=== PATIENT | female | born 1980 | race Caucasian/White ===

== ENCOUNTER 2024-11-22 10:50 | Outpatient (OUT) | payer BC, SELFPAY ==
--- NOTE | 2024-11-22 | XR_ITS ---
The [address] [address] Patient Name: RADHA ULRICH MRN: [id number] date: 1980 Sex: F Assigned Patient Location: [facility] Current Patient Location: Accession/Order Number: [id number] Exam Date: 11/22/2024 11:00 Report Date: 11/26/2024 15:39 At the request of: LUIS MCCORMICK Procedure: XR pelvis 1-2V PROCEDURE: XR pelvis 1-2V HISTORY: M54.17 Radiculopathy, lumbosacral region COMPARISON: None. FINDINGS: BONES:No fracture, acute abnormality, or significant arthropathy. SOFT TISSUES:No visible soft tissue swelling. EFFUSION:None visible. OTHER: L5 partial sacralization (developmental variant). Disc space narrowing. XR/XR pelvis 1-2V IMPRESSION: 1. No acute abnormality or significant degenerative change of the pelvis. 2. 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 Electronically authenticated by: JOANNE VELASCO Date: 11/26/2024 15:39
--- NOTE | 2024-11-22 | XR_ITS ---
The [address] [address] Patient Name: RADHA ULRICH MRN: [id number] date: 1980 Sex: F Assigned Patient Location: [facility] Current Patient Location: [facility] Accession/Order Number: [id number] Exam Date: 11/22/2024 11:00 Report Date: 11/26/2024 15:41 At the request of: LUIS MCCORMICK Procedure: XR lumbar spine min 4V EXAMINATION: XR lumbar spine min 4V HISTORY: M54.17 Radiculopathy, lumbosacral region COMPARISON: No relevant comparison available. FINDINGS: BONES: Partial sacralization of L5 (normal variant). Mild degenerative facet arthropathy L5-S1. DISC SPACES: Moderate marked narrowing L5-S1. PARASPINOUS: Negative. No paraspinous abnormality is seen. OTHER: Negative. XR/XR lumbar spine min 4V IMPRESSION: 1. Moderate-marked narrowing of the L5-S1 disc space; degenerative changes versus developmental since there is sacralization of L5 (normal variant). Consider MRI for further evaluation. Electronically authenticated by: JOANNE VELASCO Date: 11/26/2024 15:41
== END 2024-11-22 10:51 | disposition home or self-care (01) ==
LOC: RAD 10:51
DX: M54.17 Radiculopathy, lumbosacral region (principal)
CPT/HCPCS: 72110; 72170

== ENCOUNTER 2024-12-25 15:09 | Outpatient (REF) | payer BC, SELFPAY ==
--- OUTSIDE RECORDS SUMMARY | 2024-12-25 15:32 | XMS_ITS | CCD ---
Author Organization [facility] Care Team Providers Care Wheel Press Clerk Name Role Phone ANTON CRUZ Admitting Unavailable ANTON CRUZ Attending Unavailable ANTON CRUZ Consulting Unavailable Kuns, Patricio Unavailable Kuns, DO Patricio Primary Care Provider [phone] Kuns, DO Patricio Attending Provider Kuns, DO Patricio Primary Care Provider [phone] MARTHA Barba Attending Provider [phone] Kuns, DO Patricio Attending Provider Kuns, DO Patricio Attending Provider [phone] Kuns, DO Patricio Referring Provider Kuns, DO Patricio Primary Care Provider Kuns, Patricio Primary Care Unavailable Kuns, Patricio Admitting Unavailable Kuns, Patricio Attending Unavailable Kuns, Patricio Attending Unavailable Kuns, Patricio Primary Care Unavailable Kuns, Patricio Admitting Unavailable Kuns, Patricio Referring Unavailable Kuns, Patricio Primary Care Unavailable Leilani Barba Attending Unavailable Leilani Barba Admitting Unavailable Medications Current Medications Medication Drug Class(es) Dates Sig (Normalized) Sig (Original) ciprofloxacin 500 mg oral tablet (1 source) Quinolone Antimicrobial Start: 08-09-2021 take 1 tablet by mouth every twelve hours Ciprofloxacin HCl 500 MG 1 tablet Orally every 12 hrs for 10 day(s) Jul, Active meloxicam 15 mg oral tablet (8 sources) Nonsteroidal Anti-inflammatory Drug Start: 04-03-2024 End: 07-08-2024 take 1 tablet by mouth once daily as needed Meloxicam 15 mg tablet Active 15 MG PO Daily as needed July 08, 2024 7:30am 8 hr methylphenidate hydrochloride 20 mg extended release oral tablet (20 sources) Central Nervous System Stimulant Start: 07-08-2024 End: 11-12-2024 take 1 tablet by mouth once daily Methylphenidate Hcl 20 mg tablet extended release Active 20 MG PO Daily November 12, 2024 Start: 01-07-2024 End: 07-08-2024 take 1 tablet by mouth once daily Methylphenidate Hcl 20 mg tablet extended release Discontinued 20 MG PO Daily May 12, 2024 June 12, 2024 10:47am Start: 08-23-2023 take 1 tablet by leonardo th every twenty-four hours Methylphenidate HCl ER 20 MG 1 tablet Orally Once a day for 30 days Aug, Active Start: 07-26-2023 take 1 tablet by leonardo th every twenty-four hours Methylphenidate HCl ER 20 MG 1 tablet Orally Once a day for 30 days Jul, Active Start: 06-27-2023 take 1 tablet by leonardo th every twenty-four hours Methylphenidate HCl ER 20 MG 1 tablet Orally Once a day for 30 days Jun, Active Start: 05-28-2023 take 1 tablet by leonardo th every twenty-four hours Methylphenidate HCl ER 20 MG 1 tablet Orally Once a day for 30 days May, Active Start: 04-25-2023 take 1 tablet by leonardo th every twenty-four hours Methylphenidate HCl ER 20 MG 1 tablet Orally Once a day for 30 days Apr, Active Start: 03-21-2023 take 1 tablet by leonardo th every twenty-four hours Methylphenidate HCl ER 20 MG 1 tablet Orally Once a day for 30 days February, Active Start: 12-01-2022 take 1 tablet by leonardo th every twenty-four hours Methylphenidate HCl ER 20 MG 1 tablet Orally Once a day for 30 days Nov, Active Start: 08-03-2022 take 1 tablet by leonardo th every twenty-four hours Methylphenidate HCl ER 20 MG 1 tablet Orally Once a day for 30 days Jul, Active Start: 07-03-2022 take 1 tablet by leonardo th every twenty-four hours Methylphenidate HCl ER 20 MG 1 tablet Orally Once a day for 30 days Jun, Active Start: 05-01-2022 take 1 tablet by leonardo th every twenty-four hours Methylphenidate HCl ER 20 MG 1 tablet Orally Once a day Apr, Active Start: 03-30-2022 take 1 tablet by leonardo th every twenty-four hours Methylphenidate HCl ER 20 MG 1 tablet Orally Once a day Mar, Active Start: 01-30-2022 take 1 tablet by leonardo th every twenty-four hours Methylphenidate HCl ER 20 MG 1 tablet Orally Once a day Jan, Active Start: 11-30-2021 take 1 tablet by leonardo th every twenty-four hours Methylphenidate HCl ER 20 MG 1 tablet Orally Once a day Nov, Active Start: 10-26-2021 take 1 tablet by leonardo th every twenty-four hours Methylphenidate HCl ER 20 MG 1 tablet Orally Once a day Oct, Active Start: 09-19-2021 take 1 tablet by leonardo th every twenty-four hours Methylphenidate HCl ER 20 MG 1 tablet Orally Once a day Aug, Active Start: 08-19-2021 take 1 tablet by leonardo th every twenty-four hours Methylphenidate HCl ER 20 MG 1 tablet Orally Once a day Jul, Active Multiple Vitamin - (3 sources) take 1 tablet by mouth once daily Multiple Vitamin - 1 tablet Orally Once a day Active Multivitamin (Multiple Vitamins) tablet (7 sources) Start: 01-07-2024 take 1 tablet by mouth once daily Multivitamin (Multiple Vitamins) tablet Active 1 TAB PO Daily January 06, 2024 11:00pm Start: 01-07-2024 take 1 tablet by leonardo th once daily Multivitamin (Multiple Vitamins) tablet Active 1 TAB PO Daily January 07, 2024 12:00am semaglutide (4 sources) Start: 07-08-2024 inject 1.2 mg by subcutaneous injection every week semaglutide Active 1.2 MG SUBCUT Once a week July 07, 2024 11:00pm Start: 07-08-2024 End: 07-08-2024 inject 0.6 mg by subcutaneous injection every week semaglutide Discontinued 0.6 MG SUBCUT Once a week July 07, 2024 11:00pm July 08, 2024 7:55am Start: 07-08-2024 inject 1.2 mg by sub cutaneous injection every week semaglutide Active 1.2 MG SUBCUT Once a week July 08, 2024 12:00am Start: 07-08-2024 End: 07-08-2024 inject 0.6 mg by subcutaneous injection every week semaglutide Discontinued 0.6 MG SUBCUT Once a week July 08, 2024 12:00am July 08, 2024 8:55am SUMAtriptan 100 mg oral tablet (17 sources) Serotonin-1b and Serotonin-1d Receptor Agonist Start: 01-07-2024 End: 01-08-2024 take 1 tablet by mouth once as needed for headache Sumatriptan Succinate (Imitrex) 100 mg tablet Active 100 MG PO Once as needed for migraine headache January 08, 2024 12:10pm Start: 07-26-2023 take 1 tablet by leonardo th once daily as needed Imitrex 100 MG 1 tablet at onset of headache Orally Once a day as needed Jul, Active Completed/Discontinued Medications Medication Drug Class(es) Dates Sig (Normalized) Sig (Original) B-12 - up to 1000 mcg (20 sources) Start: 11-06-2013 B-12 - up to 1000 mcg Oct, 1 mL Start: 08-25-2013 B-12 - up to 1 000 mcg Aug, 1 mL Start: 07-28-2013 B-12 - up to 1 000 mcg Jul, 1 mL Start: 09-23-2012 B-12 - up to 1 000 mcg Sep, Ketorolac (20 sources) Nonsteroidal Anti-inflammatory Drug, Cyclooxygenase Inhibitor Start: 10-12-2016 Toradol per 15 mg Sep, 60 mg Semaglutide (7 sources) Start: 04-01-2024 End: 07-08-2024 Semaglutide (Ozempic) 0.25 mg or 0.5 mg (2 mg/3 mL) pen injector Discontinued 0.25 MG SUBCUT every week March 31, 2024 11:00pm July 08, 2024 7:31am for 4 weeks Start: 04-01-2024 End: 07-08-2024 Semaglutide (Ozempic) 0.25 m g or 0.5 mg (2 mg/3 mL) pen injector Discontinued 0.25 MG SUBCUT every week April 01, 2024 12:00am July 08, 2024 8:31am for 4 weeks Start: 04-01-2024 Semaglutide (O zempic) 0.25 mg or 0.5 mg (2 mg/3 mL) pen injector Active 0.25 MG SUBCUT every week April 01, 2024 12:00am for 4 weeks Toradol 30 mg/ml (3 sources) Start: 07-26-2023 Toradol 30 mg/ ml Jul, 60 mg Problems Active Problems Problem Classification Problem Date Documented Date Episodic/Chronic Adjustment disorders (18 sources) Grief finding; Translations: [Adjustment disorder, unspecified] Chronic Administrative/social admission (1 source) Other specified counseling Episodic Anxiety disorders (20 sources) Anxiety; Translations: [Anxiety disorder, unspecified] 01-08-2024 Chronic Attention-deficit, conduct, and disruptive behavior disorders (20 sources) Attention deficit hyperactivity disorder, predominantly inattentive type; Translations: [Attention-deficit hyperactivity disorder, predominantly inattentive type] 01-08-2024 Chronic Attention-deficit, conduct, and disruptive behavior disorders (20 sources) Attention-deficit hyperactivity disorder, predominantly inattentive type; Translations: [ADD (attention deficit disorder) F90.0] Onset: 08-19-2021 Resolved: 07-11-2022 Chronic Disorders of lipid metabolism (20 sources) Hyperlipidemia; Translations: [Hyperlipidemia, unspecified] Onset: 09-19-2021 Resolved: 09-19-2021 Chronic Disorders usually diagnosed in infancy, childhood, or adolescence (3 sources) Other specified behavioral and emotional disorders with onset usually occurring in childhood and adolescence; Translations: [Attention deficit disorder without mention of hyperactivity] 01-08-2024 Chronic Headache; including migraine (11 sources) Refractory migraine; Translations: [Migraine, unspecified, intractable, with status migrainosus] Chronic Immunizations and screening for infectious disease (2 sources) Encounter for screening for human papillomavirus (HPV); Translations: [Contact with or exposure to other viral diseases] Onset: 03-24-2020 12-01-2024 Episodic Other connective tissue disease (7 sources) Foot pain; Translations: [Pain in left foot] 04-01-2024 Episodic Other nervous system disorders (2 sources) Superficial peroneal neuropathy; 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0-33.9, adult Chronic Other nutritional; endocrine; and metabolic disorders (8 sources) Obesity, unspecified; Translations: [Obesity, unspecified] 01-08-2024 Chronic Other nutritional; endocrine; and metabolic disorders (2 sources) Obesity; Translations: [Obesity, unspecified] 07-08-2024 Chronic Other nutritional; endocrine; and metabolic disorders (3 sources) Overweight in adulthood with body mass index of 25 or more but less than 30; Translations: [Body mass index (BMI) 29.0-29.9, adult] 07-08-2024 Episodic Other nutritional; endocrine; and metabolic disorders (1 source) Body mass index (BMI) 29.0-29.9, adult; Translations: [Body Mass Index 29.0-29.9, adult] 07-08-2024 Episodic Other nutritional; endocrine; and metabolic disorders (1 source) Body mass index (BMI) 27.0-27.9, adult; Translations: [Body Mass Index 27.0-27.9, adult] 10-06-2024 Episodic Other screening for suspected conditions (not mental disorders or infectious disease) (20 sources) Encounter for screening for malignant neoplasm of cervix; Translations: [Inverted T wave] Onset: 03-23-2020 Episodic Sprains and strains (20 sources) Sprain of ankle; Translations: [Sprain of unspecified ligament of left ankle, initial encounter] 04-01-2024 Episodic Viral infection (2 sources) Viral disease; Translations: [Viral infection, unspecified] 12-01-2024 Episodic Past or Other Problems Problem Classification Problem Date Documented Da te Episodic/Chronic Genitourinary symptoms and ill-defined conditions (4 sources) Dysuria; Translations: [Dysuria] Episodic Other and unspecified benign neoplasm (4 sources) Neoplasm and/or hamartoma; Translations: [Melanocytic nevi, unspecified] Episodic Other connective tissue disease (1 source) Pain in left foot; Translations: [Pain in left foot] Onset: 04-01-2024 Episodic Other non-traumatic joint disorders (1 source) Pain in left ankle and joints of left foot; Translations: [Pain in left ankle and joints of left foot] Onset: 04-01-2024 Episodic Unclassified (1 source) History of COVID-19 Z86.16; Translations: [History of COVID-19 Z86.16] Onset: 08-19-2021 Resolved: 08-19-2021 Unclassified (1 source) Encntr screen for dis of the bld/bld-form org/immun mechnsm V78.8 Unclassified (1 source) Encounter for school examination V70.5 Results Test Name Value Interpretation Reference Range Facility MM screening mammo BI w/CADo n 04-21-2024 MM screening mammo BI w/CAD [facility] [place] [address] [place] [address] Mammography Report Signed Patient: Jose Gonsales MR#: [id number] : 1980 Acct:[id number] Age/Sex: 43 / F ADM Date: 04/21/24 Loc: ME Room: Type: [facility] Attending Dr: Patricio Freed DO Copies to: Patricio Freed DO Ordering Provider: Patricio Freed DO Date of Service: 04/21/24 MM/MM screening mammo BI w/CAD: Z12.39 - Encounter for other screening for malignant neop... BILATERAL Screening Full Field digital mammogram with 3-D imaging. Full field digital CC and MLO imaging performed. CAD utilized. COMPARISON: 04/02/2023 HISTORY: Annual screening BREAST COMPOSITION: Scattered fibroglandular densities of the breast parenchyma identified BREAST CALCIFICATIONS: Benign calcifications present. VASCULAR CALCIFICATIONS: None ARCHITECTURAL DISTORTION: None BREAST NODULE: None AXILLARY LYMPH NODES: Normal POSTSURGICAL CHANGES: None MM/MM screening mammo BI w/CAD IMPRESSION: No mammographic evidence of malignancy. Routine follow-up recommended in one year. RESULT CODE: 2 Benign Findings(s) DENSITY CODE: 2 (approximately 25-50% glandular) FOLLOW UP: 1YR THE FALSE-NEGATIVE RATE OF MAMMOGRAPHY IS APPROXIMATELY 10%. IMAGING OF A PALPABLE ABNORMALITY MUST BE BASED ON CLINICAL GROUNDS. PATIENT WAS ENTERED INTO A REMINDER SYSTEM WITH A TARGET DUE DATE FOR THE NEXT MAMMOGRAM. Impression dictated by: Issac Oliveros M.D.04/21/2024 9:34 AM Dictation Location: [facility] Transcribed By: PWS 04/21/24933 Dictated By: Issac Oliveros DO 04/21/24932 Signed By: 04/21/24933 Normal [facility] Alanine aminotransferase [En zymatic activity/volume] in Serum or PlasmaOrdered By: Patricio Freed on 04-15-2024 ALT [Catalytic activity/Vol] 24 U/L Normal 7-52 [facility] Comment on above: Performed By: #### C MP, CBC, LIPID, TSH3 #### [facility] [address] [place] [address] [place] Albumin [Mass/volume] in Ser um or Plasma by Bromocresol green (BCG) dye binding methoOrdered By: Patricio Freed on 04-15-2024 Albumin BCG dye [Mass/Vol] 4.0 g/dL 3.5-5.7 [facility] Alkaline phosphatase [Enzyma tic activity/volume] in Serum or PlasmaOrdered By: Patricio Freed on 04-15-2024 ALP [Catalytic activity/Vol] 59 U/L Normal 34-104 [facility] Comment on above: Performed By: #### C MP, CBC, LIPID, TSH3 #### [facility] [address] [place] [id number] [facility] Aspartate aminotransferase [ Enzymatic activity/volume] in Serum or PlasmaOrdered By: Patricio Freed on 04-15-2024 AST [Catalytic activity/Vol] 21 U/L Normal 13-39 [facility] Comment on above: Performed By: #### C MP, CBC, LIPID, TSH3 #### [facility] [address] [place] [id number] [place] Automated basophil %Ordered By: Patricio Freed on 04-15-2024 Basophils/100 WBC (Bld) 0.6 % Normal . [facility] Comment on above: Performed By: #### C MP, CBC, LIPID, TSH3 #### [address] Automated basophil countOrde red By: Patriciolinda Freed on 04-15-2024 Basophils (Bld) [#/Vol] 0.0 10*3/uL Normal 0.0-0.2 [facility] Comment on above: Result Comment: PERF ORMED BY: [place] [address] PATHOLOGIST MERCHANDISE ADJUSTMENT CLERK DAVID FRENCH M.D. Performed By: #### C MP, CBC, LIPID, TSH3 #### [address] Automated blood monocyte cou ntOrdered By: Patricio Freed on 04-15-2024 Monocytes (Bld) [#/Vol] 0.3 10*3/uL Normal 0.0-0.8 [facility] Comment on above: Performed By: #### C MP, CBC, LIPID, TSH3 #### [address] Automated eosinophil %Ordere d By: Patricio Freed on 04-15-2024 Eosinophils/100 WBC (Bld) 1.2 % Normal . [facility] Comment on above: Performed By: #### C MP, CBC, LIPID, TSH3 #### [address] Automated eosinophil countOr dered By: Patricio Freed on 04-15-2024 Eosinophils (Bld) [#/Vol] 0.0 10*3/uL Normal 0.0-0.45 [facility] Comment on above: Performed By: #### C MP, CBC, LIPID, TSH3 #### [address] Automated monocyte %Ordered By: Patricio Freed on 04-15-2024 Monocytes/100 WBC (Bld) 9.0 % Normal . [facility] Comment on above: Performed By: #### C MP, CBC, LIPID, TSH3 #### [address] Automated neutrophil %Ordere d By: Patricio Freed on 04-15-2024 Neutrophils/100 WBC (Bld) 55.0 % Normal . [facility] Comment on above: Performed By: #### C MP, CBC, LIPID, TSH3 #### [address] Bilirubin.total [Mass/volume ] in Serum or PlasmaOrdered By: Patricio Freed on 04-15-2024 Bilirubin [Mass/Vol] 0.7 mg/dL Normal 0.3-1.0 [facility] Comment on above: Performed By: #### C MP, CBC, LIPID, TSH3 #### [address] Calcium [Mass/volume] in Ser um or PlasmaOrdered By: Patricio Freed on 04-15-2024 Calcium [Mass/Vol] 8.8 mg/dL Normal 8.6-10.3 [facility] Comment on above: Performed By: #### C MP, CBC, LIPID, TSH3 #### [address] Carbon dioxide, total [Moles /volume] in Serum or PlasmaOrdered By: Patricio Freed on 04-15-2024 CO2 [Moles/Vol] 28.8 mmol/L Normal 21.0-31.0 [facility] Comment on above: Performed By: #### C MP, CBC, LIPID, TSH3 #### [place] [address] [place] Chloride [Moles/volume] in S fausto or PlasmaOrdered By: Patricio Freed on 04-15-2024 Chloride [Moles/Vol] 107 mmol/L Normal 98-107 [facility] Comment on above: Performed By: #### C MP, CBC, LIPID, TSH3 #### [address] Cholesterol [Mass/volume] in Serum or PlasmaOrdered By: Patricio Freed on 04-15-2024 Cholesterol [Mass/Vol] 133 mg/dL Low 140-200 [facility] Comment on above: Chol less than 200 m g/dl low riskChol 201-239 mg/dl borderline riskChol 240 mg/dl and greater high risk Result Comment: Chol less than 200 mg/dl low risk Chol 201-239 mg/dl borderline risk Chol 240 mg/dl and greater high risk Performed By: #### C MP, CBC, LIPID, TSH3 #### [facility] [address] Cholesterol in LDL Calc [Mas s/Vol]Ordered By: Patricio Freed on 04-15-2024 Cholesterol in LDL [Mass/Vol] 75 mg/dL 0-100 [facility] Comment on above: LDL ATP III CLASSIFI CATIONLDL less than 100 mg/dL OptimalLDL 100-129 mg/dL Near or above optimalLDL 130-159 mg/dL Borderline highLDL 160-189 mg/dL HighLDL greater than 189 mg/dL Very high Cholesterol in VLDL Calc [Ma ss/Vol]Ordered By: Patricio Freed on 04-15-2024 Cholesterol in VLDL [Mass/Vol] 12 mg/dL [facility] Complete Blood Count Auto Di ffon 04-15-2024 Mean Corpuscular HGB Conc 33.7 g/dL Normal 32.0-35.0 [facility] Comment on above: Performed By: #### C MP, CBC, LIPID, TSH3 #### [facility] [address] NRBC% 0.1 /100{WBC} Normal 0-0.5 [facility] Comment on above: Performed By: #### C MP, CBC, LIPID, TSH3 #### [facility] [address] Comprehensive Metabolic Pane main 04-15-2024 Albumin [Mass/Vol] 4.0 g/dL Normal 3.5-5.7 [facility] Comment on above: Performed By: #### C MP, CBC, LIPID, TSH3 #### [address] GFR/1.73 sq M.predicted MDRD (S/P/Bld) [Vol rate/Area] mL/min/{1.73_m2} Normal [facility] Comment on above: Performed By: #### C MP, CBC, LIPID, TSH3 #### [address] Creatinine [Mass/volume] in Serum or PlasmaOrdered By: Patricio Freed on 04-15-2024 Creatinine [Mass/Vol] 0.68 mg/dL Normal 0.60-1.20 [facility] Comment on above: Performed By: #### C MP, CBC, LIPID, TSH3 #### [address] Erythrocyte distribution wid th [Ratio] by Automated countOrdered By: Patricio Freed on 04-15-2024 Erythrocyte distribution width (RBC) [Ratio] 14.7 % Normal 11.9-15.3 [facility] Comment on above: Performed By: #### C MP, CBC, LIPID, TSH3 #### [address] Erythrocytes [#/volume] in B lood by Automated countOrdered By: Patricio Freed on 04-15-2024 RBC (Bld) [#/Vol] 4.26 10*6/uL Normal 3.60-5.00 [facility] Comment on above: Performed By: #### C MP, CBC, LIPID, TSH3 #### [address] [facility] ECG *PCP OFFICE ONLY*on 04-15-2024 [facility] ECG *PCP OFFICE ONLY* [facility] [place] [address] [place] [address] Electrocardiograph Report Signed Patient: Jose Gonsales MR#: [id number] : 1980 Acct:[id number] Age/Sex: 43 / F ADM Date: 04/15/24 Loc: EKGCAST Room: Type: [facility] Attending Dr: Patricio Freed DO Ordering Provider: Patricio Freed DO Date of Service: 04/15/24 ECG/FPG ECG *PCP OFFICE ONLY*: Z00.00 - Encounter for general adult medical examination ... Copies to: Test Reason : val Blood Pressure : / mmHG Vent. Rate : 057 BPM Atrial Rate : 057 BPM P-R Int : 172 ms QRS Dur : 076 ms QT Int : 448 ms P-R-T Axes : 042 066 049 degrees QTc Int : 436 ms Sinus bradycardia Otherwise normal ECG No previous ECGs available Confirmed by Maxx Hickman ([id number]) on 04/21/2024 4:00:34 PM Referred By: Electronically Signed By:Maxx Hickman Transcribed By: MUS Signed By Maxx Hickman MD 04/21/24 1600 Normal [facility] Glucose [Mass/volume] in Ser um or PlasmaOrdered By: Patricio Freed on 04-15-2024 Glucose [Mass/Vol] 74 mg/dL Normal 70-100 [facility] Comment on above: ADA recommended refe rence rangeRandom Glucose Reference Range is dependent on time and content of last meal. Glucose of more than 200 mg/dL in a nonstressed, ambulatory subject supports the diagnosis of Diabetes Mellitus. Result Comment: [place] om Glucose Reference Range is dependent on time and content of last meal. Glucose of more than 200 mg/dL in a nonstressed, ambulatory subject supports the diagnosis of Diabetes Mellitus. ADA recommended reference range Performed By: #### C MP, CBC, LIPID, TSH3 #### [facility] [address] Hematocrit [Volume Fraction] of Blood by Automated countOrdered By: Patricio Freed on 04-15-2024 Hematocrit (Bld) [Volume fraction] 35.9 % Normal 34.0-46.4 [facility] Comment on above: Performed By: #### C MP, CBC, LIPID, TSH3 #### [facility] [address] Hemoglobin [Mass/volume] in BloodOrdered By: Patricio Freed on 04-15-2024 Hemoglobin (Bld) [Mass/Vol] 12.1 g/dL Normal 11.8-15.4 [facility] Comment on above: Performed By: #### C MP, CBC, LIPID, TSH3 #### [facility] [address] Laboratory - Chemistry and C hemistry - challengeon 04-15-2024 Bilirubin Ql (U) Negative [facility] Glucose (U) [Mass/Vol] [facility] Ketones Ql (U) trace [facility] pH (U) 6.5 [pH] [facility] Specific gravity (U) [Rel density] 1.030 [facility] Urobilinogen (U) [Mass/Vol] 0.2 mg/dL [facility] Laboratory - Urinalysison Leukocyte esterase Test strip Ql (U) Negative [facility] Nitrite Ql (U) Negative [facility] Protein Ql (U) Negative [facility] Leukocytes [#/volume] correc radha for nucleated erythrocytes in Blood by Automated counOrdered By: Patricio Freed on 04-15-2024 WBC corrected for nucl RBC Auto (Bld) [#/Vol] 3.8 10*3/uL 3.8-11.6 [facility] Leukocytes [#/volume] in Blo od by Automated countOrdered By: Patricio Freed on 04-15-2024 WBC (Bld) [#/Vol] 3.8 10*3/uL Normal 3.8-11.6 [facility] Comment on above: Performed By: #### C MP, CBC, LIPID, TSH3 #### [facility] [address] Lipid Panelon 04-15-2024 LDL Cholesterol,Calculated 75 mg/dL Normal 0-100 [facility] Comment on above: Result Comment: LDL ATP III CLASSIFICATION LDL less than 100 mg/dL Optimal LDL 100-129 mg/dL Near or above optimal LDL 130-159 mg/dL Borderline high LDL 160-189 mg/dL High LDL greater than 189 mg/dL Very high Performed By: #### C MP, CBC, LIPID, TSH3 #### [address] Triglyceride w/Reflex 61 mg/dL Normal 0-149 [facility] Comment on above: Result Comment: TRIG ATP III CLASSIFICATION TRIG less than 150 mg/dL Normal TRIG 150-199 mg/dL Borderline high TRIG 200-500 mg/dL High TRIG greater than 500 mg/dL Very high Standard traceable to the Center for Disease Conrtrol and Prevention (CDC) test method. Performed By: #### C MP, CBC, LIPID, TSH3 #### [address] VLDL CHOLESTEROL 12 mg/dL Normal [facility] Comment on above: Performed By: #### C MP, CBC, LIPID, TSH3 #### [address] Lymphocytes [#/volume] in Bl ood by Automated countOrdered By: Patricio Freed on 04-15-2024 Lymphocytes (Bld) [#/Vol] 1.3 10*3/uL Normal 1.00-4.8 [facility] Comment on above: Performed By: #### C MP, CBC, LIPID, TSH3 #### [address] Lymphocytes/100 leukocytes i n Blood by Automated countOrdered By: Patricio Freed on 04-15-2024 Lymphocytes/100 WBC (Bld) 34.2 % Normal . [facility] Comment on above: Performed By: #### C MP, CBC, LIPID, TSH3 #### [address] MCH [Entitic mass] by Automa radha countOrdered By: Patricio Freed on 04-15-2024 MCH (RBC) [Entitic mass] 28.4 pg Normal 24.7-34.3 [facility] Comment on above: Performed By: #### C MP, CBC, LIPID, TSH3 #### [address] MCHC Auto (RBC) [Mass/Vol]Or dered By: Patricio Freed on 04-15-2024 MCHC (RBC) [Mass/Vol] 33.7 g/dL 32.0-35.0 [facility] MCV [Entitic volume] by Auto mated countOrdered By: Patricio Freed on 04-15-2024 MCV (RBC) [Entitic vol] 84.2 fL Normal 80-100 [facility] Comment on above: Performed By: #### C MP, CBC, LIPID, TSH3 #### [address] Neutrophils [#/volume] in Bl ood by Automated countOrdered By: Patricio Freed on 04-15-2024 Neutrophils (Bld) [#/Vol] 2.1 10*3/uL Normal 1.8-7.7 [facility] Comment on above: Performed By: #### C MP, CBC, LIPID, TSH3 #### [address] No Panel InformationOrdered By: Patricio Freed on 04-15-2024 Estimated GFR (CKD-EPI) > 60.0 mL/Min [facility] Creatinine Clearance (Chem N/A [facility] No Panel Informationon 04-15 Urine Occult Blood Negative [facility] Nucleated erythrocytes [Pres ence] in Blood by Automated countOrdered By: Patricio Freed on 04-15-2024 Nucleated RBC Auto Ql (Bld) 0.1 /100{WBC} 0-0.5 [facility] Platelet mean volume [Entiti c volume] in Blood by Automated countOrdered By: Patricio Freed on 04-15-2024 Platelet mean volume (Bld) [Entitic vol] 9.0 fL Normal 6.3-10.7 [facility] Comment on above: Performed By: #### C MP, CBC, LIPID, TSH3 #### [address] Platelets [#/volume] in Bloo d by Automated countOrdered By: Patricio Freed on 04-15-2024 Platelets (Bld) [#/Vol] 234 10*3/uL Normal 150-450 [facility] Comment on above: Performed By: #### C MP, CBC, LIPID, TSH3 #### [address] [place] [address] [place] Potassium [Moles/volume] in Serum or PlasmaOrdered By: Patricio Freed on 04-15-2024 Potassium [Moles/Vol] 4.1 mmol/L Normal 3.5-5.1 [facility] Comment on above: Performed By: #### C MP, CBC, LIPID, TSH3 #### [address] Protein [Mass/volume] in Ser um or PlasmaOrdered By: Patriciolinda Velezs on 04-15-2024 Protein [Mass/Vol] 6.7 g/dL Normal 6.4-8.9 [facility] Comment on above: Performed By: #### C MP, CBC, LIPID, TSH3 #### [address] Serum globulin measurement b y calculation (mass/volume)Ordered By: Patricio Freed on 04-15-2024 Globulin (S) [Mass/Vol] 2.7 g/dL Normal [facility] Comment on above: Performed By: #### C MP, CBC, LIPID, TSH3 #### [address] Serum or plasma albumin/glob ulin mass ratioOrdered By: Patricio Freed on 04-15-2024 Albumin/Globulin [Mass ratio] 1.5 {ratio} Normal [facility] Comment on above: Performed By: #### C MP, CBC, LIPID, TSH3 #### [facility] [address] [place] [address] Serum or plasma anion gap de terminationOrdered By: Patricio Freed on 04-15-2024 Anion gap [Moles/Vol] 8.3 mmol/L Normal 6.0-15.0 [facility] Comment on above: Performed By: #### C MP, CBC, LIPID, TSH3 #### [address] Serum or plasma high density lipoprotein (HDL) cholesterol measurementOrdered By: Patricio Freed on 04-15-2024 Cholesterol in HDL [Mass/Vol] 46 mg/dL Normal 23-92 [facility] Comment on above: HDL CHOL ATP-III CLA SSIFICATION Cardiovascular RiskHDL > or equal to 60 mg/dL LOWHDL < 40 mg/dL HIGH Result Comment: HDL CHOL ATP-III CLASSIFICATION Cardiovascular Risk HDL > or equal to 60 mg/dL LOW HDL < 40 mg/dL HIGH Performed By: #### C MP, CBC, LIPID, TSH3 #### [facility] [address] [place] [address] Serum or plasma total choles terol/high density lipoprotein (HDL) cholesterol mass ratOrdered By: Patricio Freed on 04-15-2024 Cholesterol.total/Lima sterol in HDL [Mass ratio] 2.9 {ratio} Normal <5.0 [facility] Comment on above: Performed By: #### C MP, CBC, LIPID, TSH3 #### [facility] [address] [place] [address] Sodium [Moles/volume] in Ser um or PlasmaOrdered By: Patricio Freed on 04-15-2024 Sodium [Moles/Vol] 140 mmol/L Normal 136-145 [facility] Comment on above: Performed By: #### C MP, CBC, LIPID, TSH3 #### [facility] [address] [place] [address] Thyrotropin [Units/volume] i n Serum or PlasmaOrdered By: Patricio Freed on 04-15-2024 TSH Qn 1.16 m[IU]/L Normal 0.45-5.33 [facility] Comment on above: Result Comment: PERF ORMED BY: [place] [address] PATHOLOGIST MERCHANDISE ADJUSTMENT CLERK DAVID FRENCH M.D. Performed By: #### C MP, CBC, LIPID, TSH3 #### [facility] [address] [place] [address] Triglyceride [Mass/volume] i n Serum or PlasmaOrdered By: Patricio Freed on 04-15-2024 Triglyceride [Mass/Vol] 61 mg/dL 0-149 [facility] Comment on above: TRIG ATP III CLASSIF ICATIONTRIG less than 150 mg/dL NormalTRIG 150-199 mg/dL Borderline highTRIG 200-500 mg/dL High TRIG greater than 500 mg/dL Very highStandard traceable to the Center for Disease Conrtrol and Prevention (CDC) test method. Urea nitrogen [Mass/volume] in Serum or PlasmaOrdered By: Patricio Freed on 04-15-2024 Urea nitrogen [Mass/Vol] 14 mg/dL Normal - [facility] Comment on above: Performed By: #### C MP, CBC, LIPID, TSH3 #### [facility] [address] XR foot LT min 3V*on 024 XR foot LT min 3V* [facility] Main [place] [address] [place] [address] XRay Report Signed Patient: Jose Gonsales MR#: [id number] : 1980 Acct:[id number] Age/Sex: 43 / F ADM Date: 04/01/24 Loc: XDUCLY Room: Type: [facility] Attending Dr: Leilani Barba APRN Copies to: Leilani Barba APRN Ordering Provider: Leilani Barba APRN Date of Service: 04/01/24 XR/XR foot LT min 3V*: M79.672 - Pain in left foot ([id number]) XR/XR ankle LT min 3V*: M25.572 - Pain in left ankle and joints of left foot 3 views left ankle plain film COMPARISON: None HISTORY: Left foot and ankle injury. Pain lateral malleolus and base of the fifth metatarsal ACUTE FINDINGS: None DEGENERATIVE CHANGE: Unremarkable SOFT TISSUE FINDINGS: Unremarkable JOINT EFFUSION: None POSTOP CHANGES: None BONE MINERALIZATION: Adequate XR/XR ankle LT min 3V* IMPRESSION: No acute findings. 3 views left foot Adequate alignment. No acute fracture. Unremarkable soft tissues. IMPRESSION: No acute fracture. Impression dictated by: Issac Oliveros M.D.04/01/2024 9:46 AM Dictation Location: [place] [address] Transcribed By: [facility] 04/01/24 0946 Dictated By: Issac Oliveros DO 04/01/24 0944 Signed By: 04/01/24 0946 Normal [facility] Alanine aminotransferase [En zymatic activity/volume] in Serum or PlasmaOrdered By: Patricio Freed on 03-06-2023 ALT [Catalytic activity/Vol] 17 U/L 7-52 [facility] Albumin [Mass/volume] in Ser um or Plasma by Bromocresol green (BCG) dye binding methoOrdered By: Patricio Freed on 03-06-2023 Albumin BCG dye [Mass/Vol] 3.9 g/dL 3.5-5.7 [facility] Alkaline phosphatase [Enzyma tic activity/volume] in Serum or PlasmaOrdered By: Patricio Freed on 03-06-2023 ALP [Catalytic activity/Vol] 63 U/L 34-104 [facility] Aspartate aminotransferase [ Enzymatic activity/volume] in Serum or PlasmaOrdered By: Patricio Freed on 03-06-2023 AST [Catalytic activity/Vol] 15 U/L 13-39 [facility] Basophils Auto (Bld) [#/Vol] Ordered By: Patricio Freed on 03-06-2023 Basophils (Bld) [#/Vol] 0.0 10*3/uL 0.0-0.2 [facility] Basophils/100 WBC Auto (Bld) Ordered By: Patricio Freed on 03-06-2023 Basophils/100 WBC (Bld) 0.3 % . [facility] Bilirubin.total [Mass/volume ] in Serum or PlasmaOrdered By: Patricio Freed on 03-06-2023 Bilirubin [Mass/Vol] 0.3 mg/dL 0.3-1.0 [facility] Calcium [Mass/volume] in Ser um or PlasmaOrdered By: Patricio Freed on 03-06-2023 Calcium [Mass/Vol] 8.6 mg/dL 8.6-10.3 [facility] Carbon dioxide, total [Moles /volume] in Serum or PlasmaOrdered By: Patricio rFeed on 03-06-2023 CO2 [Moles/Vol] 25.3 mmol/L 21.0-31.0 [facility] Chloride [Moles/volume] in S fausto or PlasmaOrdered By: Patricio Freed on 03-06-2023 Chloride [Moles/Vol] 110 mmol/L 98-107 [facility] Cholesterol [Mass/volume] in Serum or PlasmaOrdered By: Patricio Freed on 03-06-2023 Cholesterol [Mass/Vol] 118 mg/dL 140-200 [facility] Comment on above: Chol less than 200 m g/dl low riskChol 201-239 mg/dl borderline riskChol 240 mg/dl and greater high risk Cholesterol in LDL Calc [Mas s/Vol]Ordered By: Patricio Freed on 03-06-2023 Cholesterol in LDL [Mass/Vol] 61 mg/dL 0-100 [facility] Comment on above: LDL ATP III CLASSIFI CATIONLDL less than 100 mg/dL OptimalLDL 100-129 mg/dL Near or above optimalLDL 130-159 mg/dL Borderline highLDL 160-189 mg/dL HighLDL greater than 189 mg/dL Very high Cholesterol in VLDL Calc [Ma ss/Vol]Ordered By: Patricio Freed on 03-06-2023 Cholesterol in VLDL [Mass/Vol] 10 mg/dL [facility] Creatinine [Mass/volume] in Serum or PlasmaOrdered By: Patricio Freed on 03-06-2023 Creatinine [Mass/Vol] 0.65 mg/dL 0.60-1.20 [facility] Eosinophils Auto (Bld) [#/Vo l]Ordered By: Patricio Freed on 03-06-2023 Eosinophils (Bld) [#/Vol] 0.0 10*3/uL 0.0-0.45 [facility] Eosinophils/100 WBC Auto (Bl d)Ordered By: Patricio Freed on 03-06-2023 Eosinophils/100 WBC (Bld) 1.2 % . [facility] Erythrocyte distribution wid th Auto (RBC) [Ratio]Ordered By: Patricio Freed on 03-06-2023 Erythrocyte distribution width (RBC) [Ratio] 14.5 % 11.9-15.3 [facility] Globulin Calc (S) [Mass/Vol] Ordered By: Patricio Freed on 03-06-2023 Globulin (S) [Mass/Vol] 3.0 g/dL [facility] Glucose [Mass/volume] in Ser um or PlasmaOrdered By: Patricio Freed on 03-06-2023 Glucose [Mass/Vol] 84 mg/dL 70-100 [facility] Comment on above: ADA recommended refe rence rangeRandom Glucose Reference Range is dependent on time and content of last meal. Glucose of more than 200 mg/dL in a nonstressed, ambulatory subject supports the diagnosis of Diabetes Mellitus. Hematocrit Auto (Bld) [Volum e fraction]Ordered By: Patricio Freed on 03-06-2023 Hematocrit (Bld) [Volume fraction] 37.3 % 34.0-46.4 [facility] Hemoglobin [Mass/volume] in BloodOrdered By: Patricio Freed on 03-06-2023 Hemoglobin (Bld) [Mass/Vol] 12.1 g/dL 11.8-15.4 [facility] Leukocytes [#/volume] correc radha for nucleated erythrocytes in Blood by Automated counOrdered By: Patricio Freed on 03-06-2023 WBC corrected for nucl RBC Auto (Bld) [#/Vol] 4.1 10*3/uL 3.8-11.6 [facility] Lymphocytes Auto (Bld) [#/Vo l]Ordered By: Patricio Freed on 03-06-2023 Lymphocytes (Bld) [#/Vol] 1.3 10*3/uL 1.00-4.8 [facility] Lymphocytes/100 WBC Auto (Bl d)Ordered By: Patricio Freed on 03-06-2023 Lymphocytes/100 WBC (Bld) 30.8 % . [facility] MCH Auto (RBC) [Entitic mass ]Ordered By: Patricio Freed on 03-06-2023 MCH (RBC) [Entitic mass] 27.6 pg 24.7-34.3 [facility] MCHC Auto (RBC) [Mass/Vol]Or dered By: Patircio Freed on 03-06-2023 MCHC (RBC) [Mass/Vol] 32.5 g/dL 32.0-35.0 [facility] MCV Auto (RBC) [Entitic vol] Ordered By: Patricio Freed on 03-06-2023 MCV (RBC) [Entitic vol] 84.8 fL 80-100 [facility] Monocytes Auto (Bld) [#/Vol] Ordered By: Patricio Freed on 03-06-2023 Monocytes (Bld) [#/Vol] 0.4 10*3/uL 0.0-0.8 [facility] Monocytes/100 WBC Auto (Bld) Ordered By: Patricio Freed on 03-06-2023 Monocytes/100 WBC (Bld) 8.8 % . [facility] Neutrophils Auto (Bld) [#/Vo l]Ordered By: Patricio Freed on 03-06-2023 Neutrophils (Bld) [#/Vol] 2.4 10*3/uL 1.8-7.7 [facility] Neutrophils/100 WBC Auto (Bl d)Ordered By: Patricio Freed on 03-06-2023 Neutrophils/100 WBC (Bld) 58.9 % . [facility] No Panel InformationOrdered By: Patricio Freed on 03-06-2023 Estimated GFR (CKD-EPI) > 60.0 mL/Min [facility] Creatinine Clearance (Chem N/A [facility] Nucleated erythrocytes [Pres ence] in Blood by Automated countOrdered By: Patricio Freed on 03-06-2023 Nucleated RBC Auto Ql (Bld) 0.2 /100{WBC} 0-0.5 [facility] Platelet mean volume Auto (B ld) [Entitic vol]Ordered By: Patricio Freed on 03-06-2023 Platelet mean volume (Bld) [Entitic vol] 9.4 fL 6.3-10.7 [facility] Platelets Auto (Bld) [#/Vol] Ordered By: Patricio Freed on 03-06-2023 Platelets (Bld) [#/Vol] 240 10*3/uL 150-450 [facility] Potassium [Moles/volume] in Serum or PlasmaOrdered By: Patricio Freed on 03-06-2023 Potassium [Moles/Vol] 4.2 mmol/L 3.5-5.1 [facility] Protein [Mass/volume] in Ser um or PlasmaOrdered By: Patricio Freed on 03-06-2023 Protein [Mass/Vol] 6.9 g/dL 6.4-8.9 [facility] RBC Auto (Bld) [#/Vol]Ordere d By: Patricio Freed on 03-06-2023 RBC (Bld) [#/Vol] 4.40 10*6/uL 3.60-5.00 [facility] Serum or plasma albumin/glob ulin mass ratioOrdered By: Patricio Freed on 03-06-2023 Albumin/Globulin [Mass ratio] 1.3 {ratio} [facility] Serum or plasma anion gap de terminationOrdered By: Patricio Freed on 03-06-2023 Anion gap [Moles/Vol] 10.9 mmol/L 6.0-15.0 [facility] Serum or plasma high density lipoprotein (HDL) cholesterol measurementOrdered By: Patricio Freed on 03-06-2023 Cholesterol in HDL [Mass/Vol] 46 mg/dL 35-85 [facility] Comment on above: HDL CHOL ATP-III CLA SSIFICATION Cardiovascular RiskHDL > or equal to 60 mg/dL LOWHDL < 40 mg/dL HIGH Serum or plasma total choles terol/high density lipoprotein (HDL) cholesterol mass ratOrdered By: Patricio Freed on 03-06-2023 Cholesterol.total/Lima sterol in HDL [Mass ratio] 2.6 {ratio} <5.0 [facility] Sodium [Moles/volume] in Ser um or PlasmaOrdered By: Patricio Freed on 03-06-2023 Sodium [Moles/Vol] 142 mmol/L 136-145 [facility] Thyrotropin [Units/volume] i n Serum or PlasmaOrdered By: Patricio Freed on 03-06-2023 TSH Qn 0.75 m[IU]/L 0.45-5.33 [facility] Triglyceride [Mass/volume] i n Serum or PlasmaOrdered By: Patricio Freed on 03-06-2023 Triglyceride [Mass/Vol] 54 mg/dL 0-149 [facility] Comment on above: TRIG ATP III CLASSIF ICATIONTRIG less than 150 mg/dL NormalTRIG 150-199 mg/dL Borderline highTRIG 200-500 mg/dL High TRIG greater than 500 mg/dL Very highStandard traceable to the Center for Disease Conrtrol and Prevention (CDC) test method. Urea nitrogen [Mass/volume] in Serum or PlasmaOrdered By: Patricio Freed on 03-06-2023 Urea nitrogen [Mass/Vol] 19 mg/dL 7-25 [facility] WBC Auto (Bld) [#/Vol]Ordere d By: Patricio Freed on 03-06-2023 WBC (Bld) [#/Vol] 4.1 10*3/uL 3.8-11.6 [facility] Urine 10 SGon 01-18-2023 Albumin DL <= 20 mg/L (U) [Mass/Vol] Negative [facility] [employer] Other pH (U) 5.5 [pH] [employer] Other Urine 10 SG Negative [employer] Other Urine 10 SG 1.010 [employer] Other Urine 10 SG 0.2 [facility] [employer] Other PAP ACOG PANEL 2: 30 to 65on 03-26-2020 Age Gdln ACOG Testing 30-65 Normal [facility] Comment on above: Performed By: #### [id number] #### [facility] [address] [place] [address] Magnus Haq DIAGNOSIS: Comment Normal [facility] Comment on above: Result Comment: NEGA TIVE FOR INTRAEPITHELIAL LESION OR MALIGNANCY. Performed at: WB Performed By: #### [id number] #### [facility] [address] [place] [address] aMgnus Haq HPV Aptima Negative Normal Negative [facility] Comment on above: Result Comment: This test was developed and its performance characteristics determined by [facility]. It has not been cleared or approved by the Food and Drug Administration. This nucleic acid amplification test detects fourteen high-risk HPV types (16,18,31,33,35,39,45,51,52,56,58,59,66,68) without differentiation. Performed at: =G Performed By: #### [id number] #### [facility] [address] [place] [address] Magnus Haq Methodology: Comment Normal [facility] Comment on above: Result Comment: This liquid based SurePath(R) pap test was screened with the assistance of an image guided system. Performed at: WB Performed By: #### [id number] #### [facility] [address] [place] [address] Magnus Haq Note: Comment [facility] Comment on above: Result Comment: The Pap smear is a screening test designed to aid in the detection of premalignant and malignant conditions of the uterine cervix. It is not a diagnostic procedure and should not be used as the sole means of detecting cervical cancer. Both false-positive and false-negative reports do occur. . Performed at: WB Performed By: #### [id number] #### [facility] [address] [place] [address] Magnus Haq Performed by: Comment Normal [facility] Comment on above: Result Comment: Harmony Carrera, Contact [employer] Performed at: WB Performed By: #### [id number] #### [facility] [address] [place] [address] Magnus Haq Specimen adequacy: Comment Normal [facility] Comment on above: Result Comment: Sati sfactory for evaluation. Endocervical and/or squamous metaplastic cells (endocervical component) are present. Performed at: WB Performed By: #### [id number] #### [facility] [address] [place] [address] Magnus Haq . . Normal [facility] Comment on above: Result Comment: Perf ormed at: WB Performed By: #### [id number] #### [facility] [address] [place] [address] Magnus Haq Vital Signs Date Time Vital Sign Value Performing Clinician Facility 12-01-2024 13:01-0500 Body height 180.[address] [facility] 12-01-2024 13:01-0500 Body mass index (BMI) [Ratio] 22.8 kg/m2 [facility] 12-01-2024 13:01-0500 Body temperature 98.2 [degF] [facility] 02-10-2025 13:01-0500 Body weight 74.[address] [facility] 12-01-2024 13:01-0500 Diastolic blood pressure 67 mm[Hg] [facility] 12-01-2024 13:01-0500 Heart rate 102 /min [facility] 12-01-2024 13:01-0500 Respiratory rate 19 /min [facility] 12-01-2024 13:01-0500 SaO2% (BldA) [Mass fraction] 98 % [facility] 12-01-2024 13:01-0500 Systolic blood pressure 106 mm[Hg] [facility] 10-06-2024 08:47-0500 Body height 166.[address] [facility] 10-06-2024 08:47-0500 Body mass index (BMI) [Ratio] 27.8 kg/m2 [facility] 10-06-2024 08:47-0500 Body weight 77.[address] [facility] 10-06-2024 08:47-0500 Diastolic blood pressure 74 mm[Hg] [facility] 10-06-2024 08:47-0500 Heart rate 67 /min [facility] 10-06-2024 08:47-0500 Respiratory rate 16 /min [facility] 10-06-2024 08:47-0500 SaO2% (BldA) [Mass fraction] 99 % [facility] 10-06-2024 08:47-0500 Systolic blood pressure 110 mm[Hg] [facility] 07-08-2024 08:31-0400 Body height 166.37 cm DO Patricio [employer] Work Phone: [facility] 07-08-2024 08:31-0400 Body mass index (BMI) [Ratio] 29.1 kg/m2 DO Patricio [employer] Work Phone: [facility] 07-08-2024 08:31-0400 Body weight 80.73 kg DO Patricio Kuns Work Phone: [facility] 07-08-2024 08:31-0400 Diastolic blood pressure 70 mm[Hg] DO Patricio Kuns Work Phone: [facility] 07-08-2024 08:31-0400 Heart rate 72 /min DO Patricio Kuns Work Phone: [facility] 07-08-2024 08:31-0400 Respiratory rate 16 /min DO Patricio Kuns Work Phone: [facility] 07-08-2024 08:31-0400 SaO2% (BldA) [Mass fraction] 99 % DO Patricio Kuns Work Phone: [facility] 07-08-2024 08:31-0400 Systolic blood pressure 100 mm[Hg] DO Patricio Kuns Work Phone: [facility] 04-15-2024 09:46-0400 Body height 166.37 cm DO Patricio Kuns Work Phone: [facility] 04-15-2024 09:46-0400 Body mass index (BMI) [Ratio] 30.9 kg/m2 DO Patricio Kuns Work Phone: [facility] 04-15-2024 09:46-0400 Body weight 85.72 kg DO Patricio Kuns Work Phone: [facility] 04-15-2024 09:46-0400 Diastolic blood pressure 78 mm[Hg] DO Patricio Kuns Work Phone: [facility] 04-15-2024 09:46-0400 Heart rate 70 /min DO Patricio Kuns Work Phone: [facility] 04-15-2024 09:46-0400 Respiratory rate 16 /min DO Patricio Kuns Work Phone: [facility] 04-15-2024 09:46-0400 Systolic blood pressure 108 mm[Hg] DO Patricio Kuns Work Phone: [facility] 04-01-2024 09:10-0400 Body height 166.37 cm DO Patricio Kuns Work Phone: [facility] 04-01-2024 09:10-0400 Body mass index (BMI) [Ratio] 31.6 kg/m2 DO Patricio Kuns Work Phone: [facility] 04-01-2024 09:10-0400 Body temperature 99.4 [degF] DO Patricio Kuns Work Phone: [facility] 04-01-2024 09:10-0400 Body weight 87.71 kg DO Patricio Kuns Work Phone: [facility] 04-01-2024 09:10-0400 Heart rate 69 /min DO Patricio Kuns Work Phone: [facility] 04-01-2024 09:10-0400 Respiratory rate 18 /min DO Patricio Kuns Work Phone: [facility] 04-01-2024 09:10-0400 SaO2% (BldA) [Mass fraction] 98 % DO Patricio Kuns Work Phone: [facility] 01-08-2024 12:43-0400 Body height 166.37 cm DO Patricio Kuns Work Phone: [facility] 01-08-2024 12:43-0400 Body mass index (BMI) [Ratio] 32.5 kg/m2 DO Patricio Kuns Work Phone: [facility] 01-08-2024 12:43-0400 Body weight 90.26 kg DO Patricio Kuns Work Phone: [facility] 01-08-2024 12:43-0400 Diastolic blood pressure 74 mm[Hg] DO Patricio Kuns Work Phone: [facility] 01-08-2024 12:43-0400 Heart rate 84 /min DO Patricio Kuns Work Phone: [facility] 01-08-2024 12:43-0400 Respiratory rate 16 /min DO Patricio Kuns Work Phone: [facility] 01-08-2024 12:43-0400 SaO2% (BldA) [Mass fraction] 96 % DO Patricio Kuns Work Phone: [facility] 01-08-2024 12:43-0400 Systolic blood pressure 112 mm[Hg] DO Patricio Kuns Work Phone: [facility] 07-26-2023 12:30-0400 Body height 166.37 cm Patricio Kuns Other [employer] Other 07-26-2023 12:30-0400 Body mass index (BMI) [Ratio] 32.77 kg/m2 Patricio Kuns Other [employer] Other 07-26-2023 12:30-0400 Body weight 90.72 kg Patricio Kuns Other [employer] Other 07-26-2023 12:30-0400 Diastolic blood pressure 76 mm[Hg] Patricio Kuns Other [employer] Other 07-26-2023 12:30-0400 Respiratory rate 16 /min Patricio Kuns Other [employer] Other 07-26-2023 12:30-0400 SaO2% (BldA) [Mass fraction] 97 % Patricio Kuns Other [employer] Other 07-26-2023 12:30-0400 Systolic blood pressure 110 mm[Hg] Patricio Kuns Other [employer] Other 04-25-2023 12:45-0400 Body height 166.37 cm Patricio Kuns Other [employer] Other 04-25-2023 12:45-0400 Body mass index (BMI) [Ratio] 32.61 kg/m2 Patricio Kuns Other [employer] Other 04-25-2023 12:45-0400 Body weight 90.27 kg Patricio Kuns Other [employer] Other 04-25-2023 12:45-0400 Diastolic blood pressure 65 mm[Hg] Patricio Kuns Other [employer] Other 04-25-2023 12:45-0400 Respiratory rate 16 /min Patricio Kuns Other [employer] Other 04-25-2023 12:45-0400 SaO2% (BldA) [Mass fraction] 99 % Patricio Kuns Other [employer] Other 04-25-2023 12:45-0400 Systolic blood pressure 110 mm[Hg] Patricio Kuns Other [employer] Other 01-18-2023 13:45-0400 Body height 166.37 cm Patricio Kuns Other [employer] Other 01-18-2023 13:45-0400 Body mass index (BMI) [Ratio] 33.1 kg/m2 Patricio Kuns Other [employer] Other 01-18-2023 13:45-0400 Body weight 91.63 kg Patricio Kuns Other [employer] Other 01-18-2023 13:45-0400 Diastolic blood pressure 82 mm[Hg] Patricio Kuns Other [employer] Other 01-18-2023 13:45-0400 Respiratory rate 16 /min Patricio Kuns Other [employer] Other 01-18-2023 13:45-0400 SaO2% (BldA) [Mass fraction] 99 % Patricio Kuns Other [employer] Other 01-18-2023 13:45-0400 Systolic blood pressure 124 mm[Hg] Patricio Kuns Other [employer] Other 10-10-2022 11:15-0500 Body height 166.37 cm Patricio Kuns Other [employer] Other 10-10-2022 11:15-0500 Body mass index (BMI) [Ratio] 33.13 kg/m2 Patricio Kuns Other [employer] Other 10-10-2022 11:15-0500 Body weight 91.72 kg Patricio Kuns Other [employer] Other 10-10-2022 11:15-0500 Diastolic blood pressure 82 mm[Hg] Patricio Kuns Other [employer] Other 10-10-2022 11:15-0500 Respiratory rate 14 /min Patricio Kuns Other [employer] Other 10-10-2022 11:15-0500 SaO2% (BldA) [Mass fraction] 98 % Patricio Kuns Other [employer] Other 10-10-2022 11:15-0500 Systolic blood pressure 126 mm[Hg] Patricio Kuns Other [employer] Other 07-11-2022 13:45-0400 Body height 166.37 cm Patricio Kuns Other [employer] Other 07-11-2022 13:45-0400 Body mass index (BMI) [Ratio] 32.67 kg/m2 Patricio Kuns Other [employer] Other 07-11-2022 13:45-0400 Body weight 90.45 kg Patricio Kuns Other [employer] Other 07-11-2022 13:45-0400 Diastolic blood pressure 72 mm[Hg] Patricio Kuns Other [employer] Other 07-11-2022 13:45-0400 Respiratory rate 16 /min Patricio Kuns Other [employer] Other 07-11-2022 13:45-0400 SaO2% (BldA) [Mass fraction] 99 % Patricio Kuns Other [employer] Other 07-11-2022 13:45-0400 Systolic blood pressure 114 mm[Hg] Patricio Kuns Other [employer] Other 03-30-2022 09:45-0400 Body height 166.37 cm Patricio Kuns Other [employer] Other 03-30-2022 09:45-0400 Body mass index (BMI) [Ratio] 32.25 kg/m2 Patricio Kuns Other [employer] Other 03-30-2022 09:45-0400 Body weight 89.27 kg Patricio Kuns Other [employer] Other 03-30-2022 09:45-0400 Diastolic blood pressure 68 mm[Hg] Patricio Kuns Other [employer] Other 03-30-2022 09:45-0400 Respiratory rate 16 /min Patricio Kuns Other [employer] Other 03-30-2022 09:45-0400 SaO2% (BldA) [Mass fraction] 99 % Patricio Kuns Other [employer] Other 03-30-2022 09:45-0400 Systolic blood pressure 98 mm[Hg] Patricio Kuns Other [employer] Other 09-19-2021 11:00-0500 Body height 166.37 cm Patricio Kuns Other [employer] Other 09-19-2021 11:00-0500 Body mass index (BMI) [Ratio] 30.64 kg/m2 Patricio Kuns Other [employer] Other 09-19-2021 11:00-0500 Body weight 84.82 kg Patricio Kuns Other [employer] Other 09-19-2021 11:00-0500 Diastolic blood pressure 66 mm[Hg] Patricio Kuns Other [employer] Other 09-19-2021 11:00-0500 Respiratory rate 16 /min Patricio Kuns Other [employer] Other 09-19-2021 11:00-0500 SaO2% (BldA) [Mass fraction] 99 % Patricio Kuns Other [employer] Other 09-19-2021 11:00-0500 Systolic blood pressure 96 mm[Hg] Patricio Kuns Other [employer] Other 08-19-2021 14:00-0400 Body height 166.37 cm Patricio Kuns Other [employer] Other 08-19-2021 14:00-0400 Body mass index (BMI) [Ratio] 30.81 kg/m2 Patricio Kuns Other [employer] Other 08-19-2021 14:00-0400 Body weight 85.28 kg Patricio Kuns Other [employer] Other 08-19-2021 14:00-0400 Diastolic blood pressure 76 mm[Hg] Patricio Kuns Other [employer] Other 08-19-2021 14:00-0400 Respiratory rate 18 /min Patricio Kuns Other [employer] Other 08-19-2021 14:00-0400 SaO2% (BldA) [Mass fraction] 98 % Patricio Kuns Other [employer] Other 08-19-2021 14:00-0400 Systolic blood pressure 110 mm[Hg] Patricio Kuns Other [employer] Other Encounters Encounter Date Encounter Type Care Provider Facility Start: 12-01-2024 End: 12-01-2024 [facility] Work Phone: Start: 12-01-2024 End: 12-01-2024 Patient encounter procedure [facility] Work Phone: Start: 10-06-2024 End: 10-06-2024 Patient encounter procedure [facility] [place] Work Phone: Start: 07-08-2024 End: 07-08-2024 ambulatory DO Patricio Kuns Work Phone: [facility] Work Phone: Start: 07-08-2024 End: 07-08-2024 Patient encounter procedure DO Patricio Kuns Work Phone: [facility] [place] Work Phone: Start: 05-12-2024 Non-patient / Non-visit DO Daniella tt Kuns Work Phone: [facility] [place] Work Phone: Start: 04-28-2024 End: 04-28-2024 ambulatory DO Patricio Kuns Work Phone: [facility] Work Phone: Start: 04-28-2024 End: 04-28-2024 Patient encounter procedure DO Patricio Kuns Work Phone: [facility] Work Phone: Start: 04-21-2024 End: 04-21-2024 Patient encounter procedure DO Patricio Kuns Work Phone: [facility] Work Phone: Start: 04-21-2024 End: 04-21-2024 ambulatory DO Patricio Kuns Work Phone: [facility] Work Phone: Start: 04-15-2024 Patient encounter status DO Patricio Kuns Work Phone: [facility] Start: 04-15-2024 Non-patient / Non-visit DO Daniella tt Kuns Work Phone: [facility] Work Phone: Start: 04-15-2024 End: 04-15-2024 ambulatory DO Patricio Kuns Work Phone: [facility] Work Phone: Start: 04-15-2024 End: 04-15-2024 Encounter for general adult medical examination without abnormal findings DO Patricio Kuns Work Phone: [facility] Start: 04-15-2024 End: 04-15-2024 Patient encounter procedure DO Patricio Kuns Work Phone: [facility] Physician [facility] [place] Work Phone: Start: 04-03-2024 End: 04-03-2024 Patient encounter procedure DO Patricio Kuns Work Phone: [facility]ician [facility] Work Phone: Start: 04-01-2024 End: 04-01-2024 ambulatory DO Patricio Kuns Work Phone: [facility] Work Phone: Start: 04-01-2024 End: 04-01-2024 Patient encounter procedure DO Patricio Kuns Work Phone: [facility] Work Phone: Start: 02-11-2024 Non-patient / Non-visit DO Daniella tt Kuns Work Phone: [facility] Physician [facility] Work Phone: Start: 01-08-2024 End: 01-08-2024 Patient encounter procedure DO Patricio Kuns Work Phone: [facility] Physician [facility] [place] Work Phone: Start: 10-24-2023 End: 10-24-2023 ambulatory Patricio Kuns Other [employer] Other Start: 10-24-2023 Telephone encounter Patricio Kuns [facility] [place] Start: 08-23-2023 End: 08-23-2023 ambulatory Patricio Kuns Other [employer] Other Start: 08-23-2023 Telephone encounter Patricio Kuns [facility] [place] Start: 07-26-2023 End: 07-26-2023 ambulatory Patricio Kuns Other [employer] Other Start: 07-26-2023 Office outpatient vi sit 25 minutes Patricio Kuns [facility] [place] Start: 06-27-2023 End: 06-27-2023 ambulatory Patricio Kuns Other [employer] Other Start: 06-27-2023 Telephone encounter Patricio Kuns [facility] [place] Start: 06-26-2023 End: 06-26-2023 ambulatory Patricio Kuns Other [employer] Other Start: 06-26-2023 Telephone encounter Patricio Kuns [facility] [place] Start: 05-28-2023 End: 05-28-2023 ambulatory Patricio Kuns Other [employer] Other Start: 05-28-2023 Telephone encounter [facility] Start: 04-25-2023 End: 04-25-2023 ambulatory Patricio Kuns Other [employer] Other Start: 04-25-2023 Office outpatient vi sit 15 minutes Patricio Kuns [facility] [place] Start: 03-26-2023 End: 03-26-2023 ambulatory DO Patricio Kuns Work Phone: [facility] Work Phone: Start: 03-26-2023 End: 03-26-2023 Patient encounter procedure DO Patricio Kuns Work Phone: [facility] [place] Work Phone: Start: 03-22-2023 End: 03-22-2023 ambulatory Patricio Kuns Other [employer] Other Start: 03-22-2023 Telephone encounter [facility]ricio Kuns [facility] Start: 03-21-2023 End: 03-21-2023 ambulatory Patricio Kuns Other [employer] Other Start: 03-21-2023 Telephone encounter [facility]io Kuns [facility] Start: 03-20-2023 End: 03-20-2023 ambulatory Patricio Kuns Other [employer] Other Start: 03-20-2023 Telephone encounter [facility]ricio Kuns [facility] Start: 03-06-2023 End: 03-06-2023 Patient encounter procedure DO Patricio Kuns Work Phone: [facility] [place] Work Phone: Start: 01-18-2023 End: 01-18-2023 ambulatory Patricio Kuns Other [employer] Other Start: 01-18-2023 Encounter for genera l adult medical examination without abnormal findings Patricio Kuns [facility] [place] Start: 01-18-2023 Office outpatient vi sit 25 minutes Patricio Kuns [facility] Start: 01-18-2023 Patient encounter status Patricio Kuns Other [employer] Other Start: 01-01-2023 End: 01-01-2023 ambulatory Patricio Kuns Other [employer] Other Start: 01-01-2023 Telephone encounter Patricio Kuns [facility] [place] Start: 12-26-2022 End: 12-26-2022 ambulatory Patricio Kuns Other [employer] Other Start: 12-26-2022 Telephone encounter Patricio Kuns [facility] [place] Start: 12-01-2022 End: 12-01-2022 ambulatory Patricio Kuns Other [employer] Other Start: 12-01-2022 Telephone encounter Patricio Kuns [facility] [place] Start: 11-01-2022 End: 11-01-2022 ambulatory Patricio Kuns Other [employer] Other Start: 11-01-2022 Telephone encounter Patricio Kuns [facility] [place] Start: 10-10-2022 End: 10-10-2022 ambulatory Patricio Kuns Other [employer] Other Start: 10-10-2022 Office outpatient vi sit 25 minutes Patricio Kuns [facility] [place] Start: 10-03-2022 End: 10-03-2022 ambulatory Patricio Kuns Other [employer] Other Start: 10-03-2022 Telephone encounter Patricio Kuns [facility] [place] Start: 08-03-2022 End: 08-03-2022 ambulatory Patricio Kuns Other [employer] Other Start: 08-03-2022 Telephone encounter Patricio Kuns [facility] [place] Start: 07-11-2022 End: 07-11-2022 ambulatory Patricio Kuns Other [employer] Other Start: 07-11-2022 Office outpatient vi sit 15 minutes Patricio Kuns [facility] [place] Start: 07-03-2022 End: 07-03-2022 ambulatory Patricio Kuns Other [employer] Other Start: 07-03-2022 Telephone encounter Patricio Kuns [facility] [place] Start: 06-28-2022 End: 06-28-2022 ambulatory Patricio Kuns Other [employer] Other Start: 06-28-2022 Telephone encounter Patricio Kuns [facility] [place] Start: 05-31-2022 End: 05-31-2022 ambulatory Patricio Kuns Other [employer] Other Start: 05-31-2022 Telephone encounter Patricio Kuns [facility] [place] Start: 05-17-2022 End: 05-17-2022 ambulatory Patricio Kuns Other [employer] Other Start: 05-17-2022 Telephone encounter Patricio Kuns [facility] [place] Start: 04-28-2022 End: 04-28-2022 ambulatory Patricio Kuns Other [employer] Other Start: 04-28-2022 Telephone encounter Patricio Kuns [facility] [place] Start: 03-30-2022 End: 03-30-2022 ambulatory Patricio Kuns Other [employer] Other Start: 03-30-2022 Office outpatient vi sit 15 minutes Patricio Kuns [facility] [place] Start: 01-30-2022 End: 01-30-2022 ambulatory Patricio Kuns Other [employer] Other Start: 01-30-2022 Telephone encounter Patricio Kuns [facility] [place] Start: 11-29-2021 End: 11-29-2021 ambulatory Patricio Kuns Other [employer] Other Start: 11-29-2021 Telephone encounter Patriciolinda Velezs [facility] Start: 10-25-2021 End: 10-25-2021 ambulatory Patricio Kuns Other [employer] Other Start: 10-25-2021 Telephone encounter Patricio Agustins [facility] Start: 09-19-2021 End: 09-19-2021 ambulatory Patricio Kuns Other [employer] Other Start: 09-19-2021 Office outpatient vi sit 15 minutes Patricio Agustins [facility] Start: 08-19-2021 Office outpatient vi sit 15 minutes Patricio Agustins [facility] Start: 12-23-2020 Patient encounter status Patriciolinda Velezs Other [employer] Other Start: 03-23-2020 End: 03-23-2020 Patient encounter procedure [facility] Facility:[facility] Procedures Date Procedure Procedure Detail Performing Clinician Start: 04-21-2024 Screening mammograph y of bilateral breasts DO Patricio Kuns Work Phone: Start: 04-01-2024 X-ray of left ankle DO Patricio Kuns Work Phone: Start: 04-01-2024 X-ray of left foot DO B rett Kuns Work Phone: Electrocardiogram Patricio Kuns Other Plan of Treatment Date Care Activity Detail Author Start: 04-15-2024 [facility] Comprehensive metabo lic 2000 panel - Serum or Plasma [facility] MG Breast - bilateral Screening [facility] Immunizations Immunization Date Immunization Notes Care Provider Fa cility 03-27-2023 hepatitis B vaccine, adult dosage Patricio Agustins Other [facility] 01-23-2023 tetanus toxoid, reduced diphtheria toxoid, and acellular pertussis vaccine, adsorbed Patricio Kuns Other [facility] 02-06-2019 influenza, seasonal, injectable Patient Objection Patricio Kuns Other [employer] Other 10-12-2016 Toradol per 15 mg Patricio Kuns Other [employer] Other 11-06-2013 B-12 - up to 1000 mcg Patricio Kuns Other [employer] Other 08-25-2013 B-12 - up to 1000 mcg Patricio Kuns Other [employer] Other 07-28-2013 B-12 - up to 1000 mcg Patricio Kuns Other [employer] Other 09-23-2012 B-12 - up to 1000 mcg Patricio Kuns Other [employer] Other NEGATED: Highlighted row has not occurred!02-06-2019 influenza, seasonal, injectable Patient Objection Patricio Kuns Other [facility] Payers Date Payer Category Payer Self-pay [id number] 2024 Unknown [id number] 1980 Unknown [id number] 1957 Unknown [id number] [facility] [id number] Medicaid [id number] Unknown [id number] Unknown [id number] Unknown [id number] Social History Date Type Detail Facility Unknown if ever smoked [facility] [employer] Other Sex Assigned At Sex Assigned At Bir th [facility] [employer] Other Start: 1980 Sex Assigned At Female F [facility] Start: 12-04-2018 End: 04-15-2024 Tobacco smoking status NHIS Ex-smoker (finding) [facility] Start: 12-01-2024 Sex Female (finding) [facility] Clinical Notes 12-20-2018 to 10-06-2024 Note Date & Type Note Facility 10-06-2024 Evaluation note Authored October 06, 2024 9:14am Sooner if needed, the ER if concerns,The above note written by Tracy Chavis LPN acting as human recorder, note dictated by Dr. Patricio Freed [facility] Work Phone: 1(715) 319-997006-25-2024 Evaluation note* Author Analia Srinivasan [facility] Authored April 15, 2024 9:57 am The above note written by BLADIMIR Wu acting as human recorder, note dictated by Dr. Patricio Freed. [facility] Work Phone: 1(430) 843-901503-19-2024 Evaluation note* Author Anju Flores [facility] Authored January 08, 2024 12: 57pm The above note written by Jose A Flores LPN, acting as human recorder, note dictated by Dr. Patricio Freed. [facility] Work Phone: 1(632) 547-351211-02-2023 Evaluation note* Encounter Date Diagnosis Assessment Notes Treatment Notes Treatment Clinical Notes Aug, ADD (attention deficit disorder) (ICD-10 - F90.0) [facility] [employer] Other 10-05-2023 Evaluation note* Encounter Date Diagnosis Assessment Notes Treatment Notes Treatment Clinical Notes Jul, ADD (attention deficit disorder) (ICD-10 - F90.0) Patient is tolerating the ritalin for the ADD. No ill side effects to report. I will have her continue with current meds as ordered and refill provided. Jul, Intractable migraine with status migrainosus, unspecified migraine type (ICD-10 - G43.911) Patient reports that she has had migraines since the age of 20. They are episodic. She can go for a very long time without getting one and then she could have 4 per month. This one has lasted 4 days. She does have light sensitivity and N/V. Motrin and tylenol have not helped. I will provide her with Imitrex today to try and also provide her with a Toradol injection in office today. She is in agreement. Educated on side effects of medication and encouraged her to let me know how she does. If symptoms persist and Imitrex does not take the pain away will necessitate doing a CAT scan of her brain. May need to try CGRP medication [employer] Other 09-06-2023 Evaluation note* Encounter Date Diagnosis Assessment Notes Treatment Notes Treatment Clinical Notes Jun, ADD (attention deficit disorder) (ICD-10 - F90.0) [employer] Other 09-05-2023 Evaluation note* Encounter Date Diagnosis Assessment Notes Treatment Notes Treatment Clinical Notes Jun, ADD (attention deficit disorder) (ICD-10 - F90.0) [employer] Other 08-07-2023 Evaluation note* Encounter Date Diagnosis Assessment Notes Treatment Notes Treatment Clinical Notes May, ADD (attention deficit disorder) (ICD-10 - F90.0) [employer] Other 07-05-2023 Evaluation note* Encounter Date Diagnosis Assessment Notes Treatment Notes Treatment Clinical Notes Apr, ADD (attention deficit disorder) (ICD-10 - F90.0) After discussion with the patient, she is doing generally well with the above medication denying any chest pains, palpitations, or shortness of breath. She was encouraged to continue as directed. Refill e-scribed. Apr, Immunization counseling (ICD-10 - Z71.89) Patient has started her Hep B series. She is low with her varicella titer therefore was advised to get this updated. Apr, Hyperlipidemia (ICD-10 - E78.5) Blood work reviewed with the patient. Overall this looks very good for her with total of 118, HDL 46, and LDL 61. Encouraged patient to continue to stay active and monitor diet. [employer] Other 06-01-2023 Evaluation note* Encounter Date Diagnosis Assessment Notes Treatment Notes Treatment Clinical Notes Mar, Encntr screen for dis of the bld/bld-form org/immun mechnsm (ICD9-CM - V78.8) Mar, Encounter for school examination (ICD9-CM - V70.5) [employer] Other 05-30-2023 Evaluation note* Encounter Date Diagnosis Assessment Notes Treatment Notes Treatment Clinical Notes February, ADD (attention deficit disorder) (ICD-10 - F90.0) [employer] Other 03-30-2023 Evaluation note* Encounter Date Diagnosis Assessment Notes Treatment Notes Treatment Clinical Notes Dec, Wellness examination (ICD-10 - Z00.00) Personalized health advice was given to the beneficiary to health education of preventative counseling services or programs aimed at reducing identified risk factors and improving self-management or community-based lifestyle interventions to reduce health risks and promote self-management and wellness, including physical activity and nutrition. A written plan for screenings was discussed, flu vaccination, routine lab studies, eye exams, as well as risk factors for other medical problems. All preventative health recommendations have been reviewed with patient to include immunizations. Patient is due to for baseline mammogram and this will be ordered for her today. Encouraged regular paps/pelvic with [employer]. UA and EKG in office today remain normal. Dec, Screening mammogram for breast cancer (ICD-10 - Z12.31) Baseline mammogram has been ordered today [employer] Other 03-07-2023 Evaluation note* Encounter Date Diagnosis Assessment Notes Treatment Notes Treatment Clinical Notes Dec, ADD (attention deficit disorder) (ICD-10 - F90.0) [employer] Other 02-10-2023 Evaluation note* Encounter Date Diagnosis Assessment Notes Treatment Notes Treatment Clinical Notes Nov, ADD (attention deficit disorder) (ICD-10 - F90.0) [employer] Other 01-11-2023 Evaluation note* Encounter Date Diagnosis Assessment Notes Treatment Notes Treatment Clinical Notes Oct, ADD (attention deficit disorder) (ICD-10 - F90.0) [employer] Other 12-20-2022 Evaluation note* Encounter Date Diagnosis Assessment Notes Treatment Notes Treatment Clinical Notes Sep, ADD (attention deficit disorder) (ICD-10 - F90.0) Current medication regimen appears to be managing her ADD well with no complaints, therefore I recommend she continues as directed. We will continue to monitor. Sep, BMI 33.0-33.9,adult (ICD-10 - Z68.33) The patient is currently taking Methylphenidate, therefore I cannot provide Adipex discussion was had Methylphenidate should work as an appetite suppressant Per patient it doesn't help with her appetite, is eating for comfort. She continues to exercise and kickbox with a six pound weight gain. Discussion was had regarding injectable alternatives, the cost, positive and negative side effects reviewed. I suggest she look into her insurance for coverage, a medication list was provided and referral to weight loss clinic discussed. Diet modification and self-discipline strongly encouraged. We will discuss after the patient looks into coverage. Sep, Grief (ICD-10 - F43.20) The patient lost her son last year to drug overdose, states she has been using food for comfort. The patient denies depression, states she feels angry. She has tried Celexa and Trintellix in the past and felt even more angry, she is not interested in trying any other medications for depression at this time. [employer] Other 12-13-2022 Evaluation note* Encounter Date Diagnosis Assessment Notes Treatment Notes Treatment Clinical Notes Sep, ADD (attention deficit disorder) (ICD-10 - F90.0) [employer] Other 10-13-2022 Evaluation note* Encounter Date Diagnosis Assessment Notes Treatment Notes Treatment Clinical Notes Jul, ADD (attention deficit disorder) (ICD-10 - F90.0) [employer] Other 09-20-2022 Evaluation note* Encounter Date Diagnosis Assessment Notes Treatment Notes Treatment Clinical Notes Jun, ADD (attention deficit disorder) (ICD-10 - F90.0) Patient is tolerating the ritalin well. She is working 12 hour shifts and just fininshed a 5 day stretch. Denies any worsening focus problems. She denies any chest pain or SOB. I am going to continue the medication and refill as needed. She is to return to office in 3 months as required. Voiced understanding [employer] Other 09-12-2022 Evaluation note* Encounter Date Diagnosis Assessment Notes Treatment Notes Treatment Clinical Notes Jun, ADD (attention deficit disorder) (ICD-10 - F90.0) [employer] Other 07-27-2022 Evaluation note* Encounter Date Diagnosis Assessment Notes Treatment Notes Treatment Clinical Notes Apr, ADD (attention deficit disorder) (ICD-10 - F90.0) [employer] Other 07-08-2022 Evaluation note* Encounter Date Diagnosis Assessment Notes Treatment Notes Treatment Clinical Notes Apr, ADD (attention deficit disorder) (ICD-10 - F90.0) [employer] Other 06-09-2022 Evaluation note* Encounter Date Diagnosis Assessment Notes Treatment Notes Treatment Clinical Notes Mar, ADD (attention deficit disorder) (ICD-10 - F90.0) Patient appears to be doing well on the above medication, no negative side effects reported. Refill provided of the above. We will continue to monitor. [employer] Other 04-11-2022 Evaluation note* Encounter Date Diagnosis Assessment Notes Treatment Notes Treatment Clinical Notes Jan, ADD (attention deficit disorder) (ICD-10 - F90.0) [employer] Other 02-08-2022 Evaluation note* Encounter Date Diagnosis Assessment Notes Treatment Notes Treatment Clinical Notes Nov, ADD (attention deficit disorder) (ICD-10 - F90.0) [employer] Other 01-04-2022 Evaluation note* Encounter Date Diagnosis Assessment Notes Treatment Notes Treatment Clinical Notes Oct, ADD (attention deficit disorder) (ICD-10 - F90.0) [employer] Other 11-29-2021 Evaluation note* Encounter Date Diagnosis Assessment Notes Treatment Notes Treatment Clinical Notes Aug, ADD (attention deficit disorder) (ICD-10 - F90.0) Patient appears to be going much better on the above medication. Denies any negative side effects. We will continue to monitor. Aug, Hyperlipidemia (ICD-10 - E78.5) Blood work ordered for wellness exam in December 2021. [employer] Other 10-29-2021 Evaluation note* Encounter Date Diagnosis Assessment Notes Treatment Notes Treatment Clinical Notes Jul, ADD (attention deficit disorder) (ICD-10 - F90.0) Patient does feel the above medication is doing well to help her focus. Refill provided. [facility] report generated and reviewed. Jul, History of COVID-19 (ICD-10 - Z86.16) Patient was COVID positive 06/2021. COVID antibody test provided. [employer] Other 03-01-2019 History general Narrative - Reported* Type Description Date Medical History ADD Medical History 2 miscarriages Medical History 12/2018 Influenza A Medical History 01/10/21 echo stress test Surgical History D&C 1999 Surgical History appendectomy 1994 Surgical History appy age 13 Surgical History D&C 11/06/2012- 6 Surgical History tubal ligation Surgical History child x2 Hospitalization History see surgical history [employer] Other 03-01-2019 History general Narrative - Reported* Type Description Date Medical History ADD Medical History 2 miscarriages Medical History 12/2018 Influenza A Medical History 01/10/21 echo stress test Surgical History D&C 1999 Surgical History appendectomy 1994 Surgical History appy age 13 Surgical History D&C 11/06/2012- 201 6 Surgical History child x2 Surgical History tubal ligation Hospitalization History see surgical history [facility] [employer] Other [facility]No [facility] Other Evaluation noteNo assessment information available [facility] Work Phone: Evaluation note* Author Analia Srinivasan [facility] Authored April 15, 2024 9:57 am The above note written by BLADIMIR Wu acting as human recorder, note dictated by Dr. Patricio Freed. [facility] Work Phone: Summary Purpose Family History Relationship Condition Age at Onset Recorded Date/T jorge brother Motor vehicle accident Unknown Unknown grandparent Unknown Advance Directives Advance Directive Response Recorded Date/ Time Advance Directives No March 04 8 8:25am Advance Directive Response Recorded Date/ Time Advance Directives No March 04 8 7:25am Chief Complaint and Reason for Visit Chief Complaint Z00.00 Chief Complaint med check Amb Documentation left ankle/foot pain w inury M25.572 - Pain in left ankle and joints of left fo Reason for Visit ADD (attention defic it disorder) Obesity Moderate left ankle sprain Chief Complaint Amb Documentation left ankle/foot pain w inury M25.572 - Pain in left ankle and joints of left fo [facility] [place] [facility] Reason for Visit Moderate left ankle sprain Moderate left ankle sprain Moderate left ankle sprain Obesity (BMI 30.0-34.9) Screening for breast cancer Wellness examination Chief Complaint Amb Documentation left ankle/foot pain w inury M25.572 - Pain in left ankle and joints of left fo [facility] [place] [place] [facility] Z12.39 Reason for Visit Moderate left ankle sprain Moderate left ankle sprain Moderate left ankle sprain Obesity (BMI 30.0-34.9) Screening for breast cancer Wellness examination Chief Complaint Amb Documentation left ankle/foot pain w inury M25.572 - Pain in left ankle and joints of left fo [facility] [place] [facility] Z12.39 3 WEEK RECHECK Reason for Visit Moderate left ankle sprain Moderate left ankle sprain Moderate left ankle sprain Obesity (BMI 30.0-34.9) Screening for breast cancer Wellness examination Moderate left ankle sprain Chief Complaint Wellness Z12.39 3 WEEK RECHECK Amb Documentation ADHD/weight management Reason for Visit Moderate left ankle sprain Obesity (BMI 30.0-34.9) Screening for breast cancer Wellness examination Moderate left ankle sprain Superficial peroneal nerve neuropathy ADD (attention deficit disorder) BMI 29.0-29.9,adult Obesity Chief Complaint Admit Date 3 month f/u October 06, 2024 8:08am Cough, congestion December 01, 2024 12:32pm Reason for Visit Admit Date ADD (attention deficit disorder) Decembe r 2023 8:08am BMI 27.0-27.9,adult October 06, 2024 8:08am Obesity October 06, 2024 8:08am Viral illness December 01, 2024 12:32pm Contact with and (suspected) exposure to covid-19 December 01, 2024 12:32pm Additional Source Comments INFORMATION SOURCE (unrecogn ized section and content) DATE CREATED AUTHOR 03/26/2020 [facility] DATE CREATED AUTHOR AUTHOR'S ORGANIZ ATION 07/12/2024 [facility] REASON FOR VISIT (unrecogniz ed section and content) med mgmt1 month Follow upref illRefills brk to send rxrefills3 month Follow uprefillRx for MethylphenidateRefillapptRefills3 month follow upClinicalrefill3 month Follow up ADDRefillsRefillbrk refillRefillswellnessRefills- brk to sendClinicalClinical3 month Follow upRefillRefill Ritalinfailed rx3 month Follow upRefillsno show Care Teams (unrecognized sec tion and content) Team Status: Active Member Role Status Dates Patricio Freed DO Primary Care Provider Active Team Status: Inactive Member Role Status Alex Freed DO Primary Care Provider, Attending Provi [place] Active Team Status: Inactive Member Role Status Dates Patricio Freed DO Primary Care Provide r, Attending Provider Active Start: January 08, 2024 End: January 08, 2024 Team Status: Active Member Role Status Dates Patricio Freed DO Primary Care Provider Active Sta rt: February 11, 2024 BLADIMIR Ramírez Attending Provider Active Start: February 11, 2024 Team Status: Inactive Member Role Status Dates Patricio Freed , DO Primary Care Provider Active Sta rt: April 01, 2024 End: April 01, 2024 Leilani Barba APRN Attending Provider Active Start: April 01, 2024 End: April 01, 2024 Team Status: Active Member Role Status Dates Anton Cruz Specialist Active Randy Barba , Specialist Active Patricio Freed , DO Primary Care Provider Active Team Status: Inactive Member Role Status Dates Patricio Freed , DO Primary Care Provider Active Sta rt: April 03, 2024 End: April 03, 2024 Randy Barba , DO Attending Provider Active St art: April 03, 2024 End: April 03, 2024 Team Status: Inactive Member Role Status Dates Patricio Freed DO Primary Care Provide r, Attending Provider Active Start: April 15, 2024 End: April 15, 2024 Team Status: Active Member Role Status Dates Patricio Freed DO Primary Care Provide r, Attending Provider Active Start: April 15, 2024 Team Status: Active Member Role Status Dates Patricio Freed DO Primary Care Provide r, Other Provider Active Start: April 15, 2024 Maxx Hickman MD Attending Provider Active Start: April 15 Team Status: Inactive Member Role Status Dates Patricio Freed DO Primary Care Provide r, Attending Provider, Referring Provider Active Start: April 21, 2024 End: April 21, 2024 Team Status: Active Member Role Status Dates Anton Cruz , Specialist Active Randy Barba , Specialist Active Patricio Freed , DO Primary Care Provider Active Team Status: Inactive Member Role Status Dates Patricio Freed DO Primary Care Provider Active Sta rt: April 28, 2024 End: April 28, 2024 Randy Barba , DO Attending Provider Active St art: April 28, 2024 End: April 28, 2024 Team Status: Active Member Role Status Dates Patricio Freed DO Primary Care Provider Active Sta rt: May 12, 2024 BLADIMIR Ramírez Attending Provider Active Start: May 12, 2024 Team Status: Inactive Member Role Status Dates Patricio Freed DO Primary Care Provide r, Attending Provider Active Start: July 08, 2024 End: July 08, 2024 Team Status: Inactive Member Role Status Dates Patricio Freed DO Primary Care Provide r, Attending Provider Active Start: October 06, 2024 End: October 06, 2024 Team Status: Inactive Member Role Status Dates Patricio Freed DO Primary Care Provider Active Sta rt: December 01, 2024 End: December 01, 2024 Skylar Junior APRN Attending Provider Active S tart: December 01, 2024 End: December 01, 2024 Goals (unrecognized section and content) Goals may be documented in a n alternate section FOR RECORDS PERTAINING TO PATIENTS WHO ARE OR HAVE BEEN ENROLLED IN A CHEMICAL DEPENDENCY/SUBSTANCEABUSE PROGRAM, SOME INFORMATION MAY BE OMITTED. This clinical summary was aggregated from multiple sources. Caution should be exercised in using it in the provision of clinical care. This summary normalizes information from multiple sources, and as a consequence, information in this document may materially change the coding, format and clinical context of patient data. In addition, data may be omitted in some cases. CLINICAL DECISIONS SHOULD BE BASED ON THE PRIMARY CLINICAL RECORDS. [facility] [employer] provides no warranty or guarantee of the accuracy or completeness of information in this document.
[2024-12-31 12:12] LABS: Age Gdln ACOG Testing Note (.); HPV Aptima Negative (Negative); IGP, Aptima HPV, rfx 16/18,45 Note (.)
== END 2024-12-25 15:10 | disposition home or self-care (01) ==
LOC: LAB 15:09
PROVIDERS: Visit Provider Physician Assistant
DX: Z01.419 Encounter for gynecological examination (general) (routine) without abnormal findings (principal)
CPT/HCPCS: 87624; 88175